=== PATIENT | female | born 1975 | race Two or more races ===

== ENCOUNTER → 2025-05-28 | Outpatient (CLI) | payer MEDICAID, SELFPAY ==
--- NOTE | 2025-05-28 16:00 | XR_ITS ---
Examination: Breast ultrasound, unilateral, right complete Date and time of exam: May 28, 2025 1604 hrs., Comparison October 13, 2023 Indications: Breast sonogram October 13, 2023 9 mm retroareolar nodule right breast, patient states palpable lump right breast 2 years Technique: Real-time moore scale ultrasonographic imaging performed right breast including all 4 quadrants as well as nipple retroareolar and axillary region. Findings: No cystic or solid mass Impression: No cystic or solid mass, BI-RADS 1
== END | disposition home or self-care (01) ==
PROVIDERS: PCP Physician Assistant; Referring Provider Physician Assistant; Visit Provider Physician Assistant
DX: N63.10 Unspecified lump in the right breast, unspecified quadrant (principal)
CPT/HCPCS: 76641